=== PATIENT | male | born 1975 | race African-American/Black ===

== ENCOUNTER 2017-01-28 18:28 | Inpatient (IN) | payer MEDICAID ==
--- NOTE | ~2017-01-28 | PN ---
Unit #: [id number] #: [id number] Patient: MARILIN MITCHELL [id number] [facility] [address] [place] [address] [id number] MR#: [id number] NAME: MARILIN MITCHELL ROOM: [facility] Age: 41 Sex: M Admission Date: 01/28/2017 : 1975 Attending Physician: Cliff Martinez M.D. Admitting Physician: Cliff Martinez M.D. Primary Care Physician: Primary Care Physician Orquidea DAILEY NOTES DATE 02/02/2017 DISCUSSION The patient's PPD has been placed. The patient remains rather demanding and today asked this physician, "I can come back if I need to, right?" indicating that he may see this facility as a respite or source of housing. I have firmly redirected this expectation and I have told the patient to expect a.m. discharge. The patient is requesting initiation of . I have discussed the risks and benefits of the medication including the risks of use of non-beverage alcohol, mouthwash, etc., with the patient. He will begin a trial today. Dictated by... Cliff Martinez M.D. CB/sujey TD: 02/02/2017 15:54 JOB #: [id number] REAL DAILEY NOTES X Cliff Martinez MD PROGRESS NOTE
--- NOTE | ~2017-01-28 | HP ---
Unit #: [id number] #: [id number] Patient: MARILIN IMTCHELL [id number] [place] [address] [id number] I MR#: [id number] NAME: MARILIN MITCHELL ROOM: [facility] Age: 41 Sex: M Admission Date: 01/28/2017 : 1975 Attending Physician: Cliff Martinez M.D. Admitting Physician: Cliff Martinez M.D. Primary Care Physician: Primary Care Physician No HISTORY AND PHYSICAL HISTORY OF PRESENT ILLNESS Marilin is a 41 year old admitted to [facility] because of his abuse of alcohol. He is detoxing. PAST MEDICAL HISTORY 1. Long history of alcohol abuse. 2. History of CHI. 3. History of DVT. PAST SURGICAL HISTORY Nothing reported. ALLERGIES No known drug allergies. SOCIAL HISTORY Smokes 1/2 pack per day. Drinks at least 2 pints of liquor on a daily basis and denies illicit drug use. FAMILY HISTORY Medically noncontributory. REVIEW OF SYSTEMS CONSTITUTIONAL: No fever or chills. HEENT: Denies any sore throat, ear pain or runny nose. CARDIOVASCULAR: Denies chest pain, irregular heart rhythm or palpitations. CHEST: Denies shortness of breath or cough. No hemoptysis. GASTROINTESTINAL: Denies nausea, vomiting, diarrhea or chronic constipation. ENDOCRINE: Denies history of increased thirst or urination. No recent significant weight loss or gain. GENITOURINARY: Denies dysuria, frequency, or hematuria. SKIN: Denies any rashes. HEMATOLOGIC: Denies history of increased bleeding or bruising. MUSCULOSKELETAL: Denies any hot, swollen joints. No generalized muscle pain. NEUROLOGIC: Denies problems with vision or speech. No frequent, severe headaches. No numbness, tingling or weakness in any extremities. Denies loss of bladder or bowel control. CURRENT MEDICATIONS 1. Detox protocol. 2. Prednisone 20 mg daily. Unit #: [id number] #: [id number] Patient: MARILIN MITCHELL 3. Skelaxin 800 mg t.i.d. 4. Xarelto 20 mg daily. 5. Nicotine patch 14 mg daily. PHYSICAL EXAMINATION GENERAL: Alert, well-nourished, in no apparent distress. VITAL SIGNS: Blood pressure 138/88, heart rate 86, respirations 16, temperature 98.6. WEIGHT: 200. HEIGHT: 5 feet 7 inches. SKIN: Warm and dry without rash or lesion. HEENT: Normocephalic. TMs not viewed. Oral and nasal passages clear. Conjunctivae clear. PERRLA. EOMs intact. NECK: Supple without lymphadenopathy or thyromegaly. HEART: Regular rate and rhythm without murmur. LUNGS: Clear. ABDOMEN: Soft, nontender. : Not done. EXTREMITIES: No evidence of cyanosis, clubbing or edema. Moves all without focal deficit. NEUROLOGICAL: Grossly within normal limits. Cranial Nerves: II: Visual young are intact. III, IV AND : Extraocular movements are intact. Pupils are equal, round and reactive to light. V: Facial sensation is grossly normal. VII: Facial movements and expression are normal. VIII: Auditory acuity grossly intact. IX, X: Uvula is midline. Phonation is normal. XI: Patient shrugs shoulders and turns head normally. XII: Tongue protrudes in the midline. Sensory and Motor Function: Sensory and motor sensation is grossly normal. Motor: moves all extremities well. Coordination: Gait is normal. Deep Tendon Reflexes: Intact. IMPRESSION Psychiatric admission. RECOMMENDATIONS PSYCHIATRIC: Per psychiatrist. MEDICAL: See no contraindications to participate in facility's activities. MEDICAL PROGNOSIS Good. MEDICAL CONDITION Stable. Dictated by... Kimmy Platt P.A.-C. for Norma Nicholson/jean paul TD: 01/29/2017 19:38 JOB #: [id number] Unit #: [id number] #: [id number] Patient: MARILIN MITCHELL HISTORY AND PHYSICAL X Kimmy Platt HISTORY AND PHYSICAL
--- NOTE | ~2017-01-28 | PN ---
Unit #: [id number] #: [id number] Patient: MARILIN MITCHELL [id number] [facility] [address] [place] [address] [id number] I MR#: [id number] NAME: MARILIN MITCHELL ROOM: [facility] Age: 41 Sex: M Admission Date: 01/28/2017 : 1975 Attending Physician: Cliff Martinez M.D. Admitting Physician: Cliff Martinez M.D. Primary Care Physician: Primary Care Physician Orquidea DAILEY NOTES DATE 02/01/2017 DISCUSSION The patient reports no signs or symptoms of withdrawal and has been generally active and pleasant in his interactions with peers and staff. He is requesting that a PPD test be applied today and we will do so. Dictated by... Cliff Martinez M.D. CB/jean paul TD: 02/01/2017 16:24 JOB #: [id number] REAL DAILEY NOTES X Cliff Martinez MD PROGRESS NOTE
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
--- NOTE | ~2017-01-28 | PA ---
Unit #: [id number] #: [id number] Patient: MARILIN MITCHELL [id number] [facility] [address] [place] [address] [id number] I MR#: [id number] NAME: MARILIN MITCHELL ROOM: [facility] Age: 41 Sex: M Admission Date: 01/28/2017 : 1975 Date of Assessment: 01/29/2017 Attending Physician: Cliff Martinez M.D. Admitting Physician: Cliff Martinez M.D. Primary Care Physician: Primary Care Physician No PSYCHIATRIC ASSESSMENT IDENTIFYING INFORMATION The patient is a 41-year-old male admitted to the [address] [place] [address] for alcohol detox. INFORMANT(S) Patient. RELIABILITY Good. CHIEF COMPLAINT "Been drinking too much." HISTORY OF PRESENT ILLNESS The patient is a 41-year-old male who was referred here from the [facility] after he had become intoxicated on their premises. The patient reports that he is originally from [place], [place] but has been in the Psychiatric for the past 3 years. He has been homeless during that period of time and has been staying at the [facility]. The patient reports that he drank 3 pints of hard liquor last evening after getting "some bad news about my family." Specifically that his young daughter is involved with an older man. The patient reports that he hopes to return to [place] some day but cannot afford to do so at this point. He was reporting positive suicidal ideation with plan to jump from a bridge. He does have a history of one previous suicide attempt which was undertaken under similar circumstances. When seen today, the patient is more future oriented and hopes to return to [facility] upon his completion of detox. PAST PSYCHIATRIC HISTORY The patient reports previous chemical dependence treatment while living in [place]. FAMILY HISTORY Noncontributory. SOCIAL HISTORY The patient completed the 11th grade. He reports alcohol use as noted previously and is a smoker. He is currently homeless. MEDICAL HISTORY Significant for a history of a closed head injury. Unit #: [id number] #: [id number] Patient: MARILIN MITCHELL MEDICATION HISTORY 1. Metaxalone. 2. Xarelto. 3. Gabapentin. 4. Mapap. 5. Prednisone. ALLERGIES None. MENTAL STATUS EXAM At this time reveals the patient to be a well-developed, well-nourished male appearing his stated age. He is in no apparent physical distress at the time of the examination. He is awake, alert, oriented in all spheres. His mood is dysphoric. His affect blunted. Speech is generally relevant and coherent. There are no gross deficits in memory or cognition noted. Intelligence is judged to be in the average range based on fund of knowledge. The patient is cooperative throughout the interview. He denies current suicidal or homicidal ideation or psychotic features. Judgement and insight appear to be intact. ASSETS AND LIABILITIES Patient's assets, motivation for change. Liabilities, lack of resources. ADMITTING DIAGNOSES 1. Alcohol use disorder. 2. Degenerative disc disease. 3. History of traumatic brain injury. PSYCHIATRIC PLAN/TREATMENT GOALS The patient remains hospitalized for safety and stabilization. Routine detoxification protocol for alcohol will be completed. The patient will participate in appropriate lindsey and milieu activities. ESTIMATED LENGTH OF STAY Three to five days. Dictated by... Cliff Martinez M.D. IGOR/jean paul TD: 01/29/2017 15:47 JOB #: [id number] PSYCHIATRIC ASSESSMENT X Cliff Martinez MD X PSYCHIATRIC ASSESSMENT
--- NOTE | ~2017-01-28 | PN ---
Unit #: [id number] #: [id number] Patient: MARILIN MITCHELL [id number] [facility] [address] [place] [address] [id number] MR#: [id number] NAME: MARILIN MITCHELL ROOM: [facility] Age: 41 Sex: M Admission Date: 01/28/2017 : 1975 Attending Physician: Cliff Martinez M.D. Admitting Physician: Cliff Martinez M.D. Primary Care Physician: Orquidea Primary Care Physician [facility] PROGRESS NOTES DATE 01/31/2017 DISCUSSION The patient is in (1) today. He does, however, state a wish not to return to the [facility]. He states that he is court ordered to continue his treatment and I have explained to him that it is most likely that he needs to continue his court ordered treatment at that facility. The patient is understanding and we expect a.m. discharge. Dictated by... Cliff Martinez M.D. CB/pearl TD: 01/31/2017 14:48 JOB #: [id number] [facility] PROGRESS NOTES X Cliff Martinez MD PROGRESS NOTE
[2017-01-29 09:44] LABS: BASOPHIL% 0.2 % (0-2.5); EOSINOPHIL% 0.2 % (0.0-7.0); LYMPHOCYTE# 2.3 X10e3 (1.0-3.5); LYMPHOCYTE% 25.9 % (17.0-45.0); MEAN CELL VOLUME 94.7 FL (83-96); MEAN CORPUSCULAR HEMOGLOBIN 31.5 PG (28-34); MEAN CORPUSCULAR HGB CONC 33.2 g/dL (30-36); MEAN PLATELET VOLUME 8.9 FL (6.5-11.5); MONOCYTE% 11.5 % (3.0-12.0); NEUTROPHIL# 5.4 X10e3 (1.5-7.1); NEUTROPHIL% 62.2 % (40-75); PLATELET COUNT 285 X10e3 (140-420); RED BLOOD COUNT 4.12 X10e (3.90-5.60); RED CELL DISTRIBUTION WIDTH 14.5 % (11.0-15.5); WHITE BLOOD COUNT 8.7 X10e3 (4.0-10.5)
[2017-01-29 09:45] LABS: DIFF IND NO
[2017-01-29 09:46] LABS: PROTHROMBIN TIME (PATIENT) 10.6 SECONDS (9.6-11.5)
[2017-01-29 09:52] LABS: URINE APPEARANCE CLEAR; URINE BILIRUBIN NEG (NEG); URINE BLOOD NEG (NEG); URINE COLOR YELLOW; URINE GLUCOSE >1000 MG/DL (NEG); URINE KETONE NEG (NEG); URINE LEUKOCYTE ESTERASE NEG (NEG); URINE NITRATE NEG (NEG); URINE PROTEIN NEG (NEG); URINE SPECIFIC GRAVITY 1.034 (1.003-1.035); URINE UROBILINOGEN 0.2 MG/DL (NEG)
[2017-01-29 10:06] LABS: THYROID STIMULATING HORMONE 0.2 uIU/ml (0.34-5.60)
[2017-01-29 10:15] LABS: FREE THYROXIN (T4) 0.62 ng/dL (0.58-1.64)
[2017-01-29 10:28] LABS: ALBUMIN SERUM 2.9 g/dL (3.5-5.0); ALKALINE PHOSPHATASE 63 U/L (32-92); ALT (SGPT) 24 U/L (10-40); AST (SGOT) 21 U/L (10-42); BILIRUBIN,TOTAL 0.6 mg/dL (0.2-2.0); BLOOD UREA NITROGEN 10 mg/dL (9-23); BUN/CREATININE RATIO 11.11; CALCIUM SERUM 8.7 mg/dL (8.4-10.2); CARBON DIOXIDE 23 mmol/L (22-31); CHLORIDE 107 mmol/L (100-111); CREATININE SERUM 0.9 mg/dL (0.6-1.4); GLOM FILT RATE Estimated ABOVE60 mL/min (>60); GLUCOSE FASTING 82 mg/dL (70-110); POTASSIUM 4.2 mmol/L (3.5-5.1); PROTEIN TOTAL SERUM 5.7 g/dL (6.0-8.3); SODIUM 142 mmol/L (135-145)
[2017-01-29 11:18] LABS: AMPHETAMINE NEG (NEG); BARBITURATES NEG (NEG); BENZODIAZEPINES NEG (NEG); COCAINE NEG (NEG); MARIJUANA NEG (NEG); OPIATES NEG (NEG); TRICYCLIC ANTIDEPRESSANTS NEG (NEG); U METHADONE NEG (NEG)
== END 2017-02-04 08:05 | DRG 897 ==
LOC: P1E 18:28
PROVIDERS: Specialist
PROC: HZ2ZZZZ Detoxification Services for Substance Abuse Treatment (ICD-10-PCS; principal; 2017-01-28)
DX: F10.20 Alcohol dependence, uncomplicated (principal); F17.200 Nicotine dependence, unspecified, uncomplicated; Z87.820 Personal history of traumatic brain injury; Z79.01 Long term (current) use of anticoagulants
CPT/HCPCS: 80053; 80307; 81003; 82947; 84439; 84443; 85025; 85610; 86592